=== PATIENT | male | born 1965 | race Caucasian/White ===

== ENCOUNTER 2018-02-12 12:20 | Emergency (ER) | payer BC ==
--- NOTE | 2018-02-12 12:26 | PDOC ---
Attending Attestation - Resident Resident Name: Bonny Mooney - ED Attending Attestation I have performed the following: I have examined & evaluated the patient, The case was reviewed & discussed with the resident, I agree w/resident's findings & plan, Exceptions are as noted
[2018-02-12 12:27] VITALS: BP 135/91; PULSE 80; TEMP 97.9; BMI 30.5
[2018-02-12] MEDS ORDERED: DIPHTH,PERTUSS(ACELL),TET 0.5 ML DISP.SYRIN IM ONE (13:01)
--- NOTE | 2018-02-12 13:04 | PDOC ---
History of Present Illness - General Chief Complaint: Injury Stated Complaint: LEFT THUMB LACERATION, INJURY Time Seen by Provider: 02/12/18 13:01 - History of Present Illness Initial Comments: 02/12/18 14:37 Chief complaint: Finger injury History of present illness: Cut his finger on a door, bleeding, no distal numbness tingling pain or limited motion Review of systems: No other injuries. Past medical history: Healthy male. No diabetes. Social/family history reviewed and noncontributory Physical exam: Alert and oriented well-developed well-nourished no acute distress 5 mm superficial skin avulsion of the distal pulp, just below the edge of the nail. The nail was not involved. No deep penetration. No deep structures involved. Distal and well removed from the joint. Impression: Superficial avulsion, possible minimal amount of skin, no suturing required Plan: Scrubbed with saline, dried, bacitracin, pressure dressing, and tube gauze. Wound care instructions and follow-up if there is bleeding or sign of infection. No pain or other distress upon discharge. Past History - Past Medical History Allergies/Adverse Reactions: Allergies Allergy/AdvReac Type Severity Reaction Status Date / Time No Known Allergies Allergy Verified 02/12/18 12:22 Home Medications: Ambulatory Orders NK [No Known Home Medication] 02/12/18 COPD: No - Suicide/Smoking/Psychosocial Hx Smoking Status: No Smoking History: Never smoked Have you smoked in the past 12 months: No Number of Cigarettes Smoked Daily: 0 Information on smoking cessation initiated: No Hx Alcohol Use: No *Physical Exam - Vital Signs Last Vital Signs Temp Pulse Resp BP Pulse Ox 97.9 F 80 18 135/91 99 02/12/18 12:20 02/12/18 12:20 02/12/18 12:20 02/12/18 12:20 02/12/18 12:20 *DC/Admit/Observation/Transfer Diagnosis at time of Disposition: Avulsion of skin - Discharge Dispostion Disposition: HOME Condition at time of disposition: Improved Decision to Admit order: No - Referrals Referrals: Ko Sabillon [Primary Care Provider] - - Patient Instructions Additional Instructions: Keep clean and dry. Keep dressing in place for 2 days. At that time, remove dressing, apply antibiotic ointment and Band-Aid. Continue to keep moist with antibiotic ointment until full healing occurs. Recheck ER or primary physician if there is persistent bleeding or sign of infection. - Post Discharge Activity
== END 2018-02-12 13:20 | disposition home or self-care (01) ==
LOC: FER 12:20
PROC: 3E0234Z Introduction of Serum, Toxoid and Vaccine into Muscle, Percutaneous Approach (ICD-10-PCS; principal; 2018-02-12)
DX: S61.012A Laceration without foreign body of left thumb without damage to nail, initial encounter (principal)
CPT/HCPCS: 90715; 99283-25